=== PATIENT | female | born 1945 | race Caucasian/White ===

== ENCOUNTER 2018-06-11 16:38 | Emergency (ER) | payer MEDICARE, OTHER ==
[~2018-06-11] VITALS: Ht 149.9 cm; Wt 69.9 kg
[2018-06-11] MEDS ORDERED: NS IV 1000 ML 1,000 ML IV SCH (17:26)
[2018-06-11] MEDS ORDERED: ONDANSETRON 4 MG/2 ML (SDV) Z0FRAN IVP ONE (17:30)
[2018-06-11 17:37] LABS: CLARITY,URINE SLIGHTLY CLOUDY; GLUCOSE, URINE (UA) NEGATIVE (NEGATIVE); KETONES,URINE 3+ (NEGATIVE); LEUKOCYTE ESTERASE ,URINE 1+ (NEGATIVE); NITRITE,URINE NEGATIVE (NEGATIVE); PH,URINE 5 (5-9); PROTEIN,URINE 2+ (NEGATIVE); UROBILINOGEN,URINE 4 MG/DL (NORMAL)
[2018-06-11 17:46] LABS: BASOPHILS # (AUTO) 0.1 10^3/uL (0.0-0.1); BASOPHILS % (AUTO) 0 % (0-10); EOSINOPHILS % (AUTO) 0 % (0-10); HEMATOCRIT 38 % (35-52); LYMPHOCYTES # (AUTO) 1.8 X 10^3 (1.0-4.0); LYMPHOCYTES % (AUTO) 4 % (12-44); MEAN CORPUSCULAR HEMOGLOBIN 24 PG (25-34); MEAN CORPUSCULAR HGB CONC 32 G/DL (32-36); MEAN CORPUSCULAR VOLUME 77 FL (80-99); MEAN PLATELET VOLUME 9.7 FL (7.4-10.4); MONOCYTES # (AUTO) 1.9 X 10^3 (0.0-1.0); MONOCYTES % (AUTO) 4 % (0-12); NEUTROPHILS # (AUTO) 40.3 X 10^3 (1.8-7.8); NEUTROPHILS % (AUTO) 91 % (42-75); PLATELET COUNT 337 10^3/uL (130-400)
[2018-06-11 17:47] LABS: WHITE BLOOD COUNT 44.1 10^3/uL (4.3-11.0)
[2018-06-11 17:48] LABS: BILIRUBIN,URINE 1+ (NEGATIVE)
[2018-06-11 17:51] LABS: BACTERIA,URINE LARGE /HPF; COLOR,URINE YELLOW; SQUAMOUS EPITHELIAL CELL,UR >50 /HPF; WBC,URINE 0-2 /HPF
[2018-06-11 18:06] LABS: NEUTROPHILS % (MANUAL) 87 %
[2018-06-11 18:07] LABS: ALBUMIN 3.9 GM/DL (3.2-4.5); BAND NEUTROPHILS 8 %; BASOPHILS % (MANUAL) 0 %; BILIRUBIN,TOTAL 0.8 MG/DL (0.1-1.0); CALCIUM 9.7 MG/DL (8.5-10.1); CREATININE SERUM 0.92 MG/DL (0.60-1.30); EOSINOPHILS % (MANUAL) 0 %; HYPOCHROMASIA SLIGHT; LYMPHOCYTES % (MANUAL) 2 %; MICROCYTOSIS SLIGHT; MONOCYTES % (MANUAL) 3 %; POTASSIUM 3.4 MMOL/L (3.6-5.0); TOTAL PROTEIN 7.5 GM/DL (6.4-8.2)
[2018-06-11] MEDS ORDERED: D5 1/2 NS W/KCL 20 MEQ/L 0 ML IV ONE (18:39)
[2018-06-11] MEDS ORDERED: 1/2 NS W/KCL 20 MEQ/L 1,000 ML IV SCH (18:45)
--- NOTE | 2018-06-11 19:00 | ED Abdominal Pain ---
General Chief Complaint: Abdominal/GI Problems Stated Complaint[facility] T[facility]: DIARRHEA X2 HAS BEEN HOSPITALIZED WITH C-DIFF AND HAS HAD IT TWICE SINCE. CONTINUES TO HAVE DIARRHEA DISPITE MEDICATIONS. LIVES IN AND WAS TOLD TO COME HERE BY HER PCP DUE TO CONSTANT DIARRHEA AND DEHYDRATION. Sepsis Screen: No Definite Risk History of Present Illness Date Seen by Provider: Jun 11, 2018 Time Seen by Provider: 16:50 Initial Comments 72-year-old female presents for diarrhea for the last 24-48 hours, abdominal pain and significant medical history over the last 6 months. She is followed by Dr. Swanson in [place]. In February 2018 she was treated for ACS with a CABG, and then developed a UTI and was treated with Levaquin, which led to C. difficile in April 2018 and May 2018, all of this was performed at [facility]. She attempted to go back to [facility] today but due to the weather travel was not advised. Timing/Duration: 1-2 Days Severity/Quality: Moderate Location: Generalized Abdomen Radiation: No Radiation Associated Symptoms: Denies Symptoms, Nausea/Vomiting (only nausea) Allergies and Home Medications Allergies Coded Allergies: Penicillins (Unverified Allergy, Mild, RASH, 06/11/18) Sulfa (Sulfonamide Antibiotics) (Unverified Allergy, Mild, RASH, 06/11/18) tramadol (Unverified Adverse Reaction, Mild, HEADACHES, 06/11/18) Patient Home Medication List Home Medication List Reviewed: Yes Review of Systems Review of Systems Constitutional: no symptoms reported, see HPI Gastrointestinal: See HPI, Abdominal Pain, Diarrhea (5-7 episodes in the last 12 hours), Nausea, Poor Appetite All Other Systems Reviewed Negative Unless Noted: Yes Past Bbobmyw-Qwsbbw-Jxjhml Hx Past Med/Social Hx: Reviewed Nursing Past Med/Soc Hx Patient Social History Alcohol Use: Denies Use Recreational Drug Use: No Smoking Status: Never a Smoker Recent Foreign Travel: No Contact w/Someone Who Travel: No Recent Infectious Disease Expo: No Recent Hopitalizations: Yes (CABG Jan) Physical Abuse: No Sexual Abuse: No Seasonal Allergies Seasonal Allergies: No Past Medical History Surgeries: Yes Adenoidectomy, CABG, Hysterectomy, Open Heart Surgery, Tonsillectomy Respiratory: No Cardiac: Yes Coronary Artery Disease, Hypertension Neurological: No Genitourinary: No Gastrointestinal: Yes C-Diff Musculoskeletal: No Endocrine: No HEENT: No Cancer: No Psychosocial: Yes Anxiety Integumentary: No Blood Disorders: No Physical Exam Vital Signs Vital Signs - First Documented 06/11/18 16:44 Temp 98.4 Pulse 72 Resp 16 B/P (MAP) 147/64 (91) Pulse Ox 97 O2 Delivery Room Air Capillary Refill : Less Than 3 Seconds Height/Weight/BMI Height: 4'11.00" Weight: 154lbs. oz. 69.880387ch; BMI Method:Stated General Appearance: WD/WN, no apparent distress HEENT: PERRL/EOMI, TMs normal, pharynx normal, other (oral mucosa pink but extremely dry) Neck: non-tender, full range of motion, supple, normal inspection Respiratory: chest non-tender, lungs clear, normal breath sounds Cardiovascular: normal peripheral pulses, regular rate, rhythm, no edema, systolic murmur Gastrointestinal: normal bowel sounds, soft; No guarding, No rebound; tenderness (generalized. Negative Tillman); No hernia, No mass, No hepatomegaly Extremities: normal range of motion, non-tender, normal inspection, no pedal edema, no calf tenderness, normal capillary refill Neurologic/Psychiatric: no motor/sensory deficits, alert, normal mood/affect, oriented x 3 Skin: normal color, warm/dry Lymphatic: no adenopathy Focused Exam Sepsis Stage: Ruled Out Reason for ruling out sepsis: Normal Lactic acid, pulse 70s and B/P 140s/70s. Lactate Level 06/11/18 18:15: Lactic Acid Level 1.02 Lactic Acid Level Laboratory Tests Test 06/11/18 18:15 Lactic Acid Level 1.02 MMOL/L (0.50-2.00) Progress/Results/Core Measures Results/Orders Lab Results Laboratory Tests Test 06/11/18 17:28 06/11/18 17:37 06/11/18 18:15 Range/Units Urine Color YELLOW Urine Clarity SLIGHTLY CLOUDY Urine pH 5 5-9 Urine Specific [place] 1.020 1.016-1.022 Urine Protein 2+ H NEGATIVE Urine Glucose (UA) NEGATIVE NEGATIVE Urine Ketones 3+ H NEGATIVE Urine Nitrite NEGATIVE NEGATIVE Urine Bilirubin 1+ H NEGATIVE Urine Urobilinogen 4 H NORMAL MG/DL Urine Leukocyte Esterase 1+ H NEGATIVE Urine RBC (Auto) 3+ H NEGATIVE Urine RBC 2-5 H /HPF Urine WBC 0-2 /HPF Urine Squamous Epithelial Cells >50 H /HPF Urine Crystals NONE /LPF Urine Bacteria LARGE H /HPF Urine Casts NONE /LPF Urine Mucus MODERATE H /LPF Urine Culture Indicated YES White Blood Count 44.1 *H 4.3-11.0 10^3/uL Red Blood Count 4.91 4.35-5.85 10^6/uL Hemoglobin 12.0 11.5-16.0 G/DL Hematocrit 38 35-52 % Mean Corpuscular Volume 77 L 80-99 FL Mean Corpuscular Hemoglobin 24 L 25-34 PG Mean Corpuscular Hemoglobin Concent 32 32-36 G/DL Red Cell Distribution Width 16.0 H 10.0-14.5 % Platelet Count 337 130-400 10^3/uL Mean Platelet Volume 9.7 7.4-10.4 FL Neutrophils (%) (Auto) 91 H 42-75 % Lymphocytes (%) (Auto) 4 L 12-44 % Monocytes (%) (Auto) 4 0-12 % Eosinophils (%) (Auto) 0 0-10 % Basophils (%) (Auto) 0 0-10 % Neutrophils # (Auto) 40.3 H 1.8-7.8 X 10^3 Lymphocytes # (Auto) 1.8 1.0-4.0 X 10^3 Monocytes # (Auto) 1.9 H 0.0-1.0 X 10^3 Eosinophils # (Auto) 0.0 0.0-0.3 10^3/uL Basophils # (Auto) 0.1 0.0-0.1 10^3/uL Neutrophils % (Manual) 87 % Lymphocytes % (Manual) 2 % Monocytes % (Manual) 3 % Eosinophils % (Manual) 0 % Basophils % (Manual) 0 % Band Neutrophils 8 % Hypochromasia SLIGHT Microcytosis SLIGHT Sodium Level 139 135-145 MMOL/L Potassium Level 3.4 L 3.6-5.0 MMOL/L Chloride Level 101 98-107 MMOL/L Carbon Dioxide Level 23 21-32 MMOL/L Anion Gap 15 H 5-14 MMOL/L Blood Urea Nitrogen 15 7-18 MG/DL Creatinine 0.92 0.60-1.30 MG/DL Estimat Glomerular Filtration Rate 60 BUN/Creatinine Ratio 16 Glucose Level 106 H 70-105 MG/DL Calcium Level 9.7 8.5-10.1 MG/DL Corrected Calcium 9.8 8.5-10.1 MG/DL Total Bilirubin 0.8 0.1-1.0 MG/DL Aspartate Amino Transf (AST/SGOT) 20 5-34 U/L Alanine Aminotransferase (ALT/SGPT) 13 0-55 U/L Alkaline Phosphatase 80 40-136 U/L Total Protein 7.5 6.4-8.2 GM/DL Albumin 3.9 3.2-4.5 GM/DL Amylase Level 8 L 25-125 U/L Lipase 5 L 8-78 U/L Lactic Acid Level 1.02 0.50-2.00 MMOL/L Micro Results Microbiology 06/11/18 C. difficile GDH Antigen & Toxins - Final, Complete My Orders Orders - TYRON FLORES C Difficile Ag + Toxin A/B. (06/11/18 17:07) Stool Culture (06/11/18 17:08) Ua Culture If Indicated (06/11/18 17:08) Amylase (06/11/18 17:26) Cbc With Automated Diff (06/11/18 17:26) Comprehensive Metabolic Panel (06/11/18 17:26) Lipase (06/11/18 17:26) Saline Lock/Iv-Start (06/11/18 17:26) Ns Iv 1000 Ml (Sodium Chloride 0.9%) (06/11/18 17:26) Ondansetron Injection (Zofran Injectio (06/11/18 17:30) Manual Differential (06/11/18 17:37) Blood Culture (06/11/18 17:49) Lactic Acid Analyzer (06/11/18 17:49) Urine Culture (06/11/18 17:28) Ct Abdomen/Pelvis Wo (06/11/18 17:52) Blood Culture (06/11/18 18:15) 1/2 Ns W/Kcl 20 Meq/L (0.45% Sodium Chlo (06/11/18 18:45) D5 1/2 Ns W/Kcl 20 Meq/L (Dextrose 5%/0. (06/11/18 18:39) Metronidazole 500mg/100ml Ivpb (Flagyl 5 (06/11/18 19:15) Vancomycin Oral Suspension (Vancomycin O (06/11/18 20:17) Acetaminophen Tablet/Caplet (Tylenol T (06/11/18 20:19) Atenolol Tablet (Tenormin Tablet) (06/11/18 20:19) Avery Syrup (Avery Syrup) 5 Ml, Vancom (06/11/18 20:30) Medications Given in ED Current Medications Medications Dose Ordered Sig/Celeste Route Start Time Stop Time Status Last Admin Dose Admin Avery Syrup/ Vancomycin HCl 500 MG = 10 ML ONCE ONCE PO 06/11/18 20:30 06/11/18 20:31 DC 06/11/18 20:44 5 ML Metronidazole 100 ml @ 100 mls/hr ONCE ONCE IV 06/11/18 19:15 06/11/18 20:14 DC 06/11/18 19:12 100 MLS/HR Ondansetron HCl 4 mg ONCE ONCE IVP 06/11/18 17:30 06/11/18 17:31 DC 06/11/18 17:54 4 MG Vital Signs/I&O 06/11/18 06/11/18 16:44 21:07 Temp 98.4 98.4 Pulse 72 72 Resp 16 16 B/P (MAP) 147/64 (91) 130/61 (84) Pulse Ox 97 97 O2 Delivery Room Air Blood Pressure Mean: 91 Progress Progress Note : Time: 16:50 Progress Note Pt seen and evaluated. Will obtain labs, stool C&S, C-diff, IV NS 1L, Zofran 4 mg IV. Will monitor. Attempting to obtain records from [facility]. 1730 WBC 44,000. Will obtain Blood cultures and lactic acid. Positive for antigen and toxin of A/B C. difficile. Will start Flagyl 500 mg IV. Spoke to [facility] and [facility], neither can transport patient to [facility], due to weather. 1800 potassium 3.4, will start half normal saline with 20 mEq of potassium after the Flagyl has infused. Patient continues to be hemodynamically stable. She is alert and oriented. We'll obtain CT of the abdomen and pelvis. 0 discussed with patient the results of her CT, which show diverticulitis and colitis of the sigmoid and descending colon, cholelithiasis and no abdominal abscess or free fluid. At the present time there are no hospital beds available here on our medical or ICU floor. She wishes to be transferred to [facility] in [place] if feasible. Will begin transfer plans. 1999 Dr. Davidson at [facility], agreed to accept patient for transfer. Continue present tx and add Vancomycin PO. 2014 [facility] has assigned patient to Room 6003. Notified [facility] for transfer. Patient and her son notified. She is complaining of a mild headache will give Tylenol 650 mg orally. 2044 patient reports headache has improved. [facility] here for transfer. Patient continues to be stable, alert and oriented. No new complaints. Diagnostic Imaging Diagonstic Imaging: CT Plain Films/CT/US/NM/MRI: abdomen, pelvis Comments NAME: ZELDA TILLEY [facility] REC#: [id number] PT STATUS: REG ER : 1945 PHYSICIAN: TYRON FLORES ADMIT DATE: 06/11/18/ER Draft Date of Exam:06/11/18 CT ABDOMEN/PELVIS WO PROCEDURE: CT abdomen and pelvis without contrast. TECHNIQUE: Multiple contiguous axial images were obtained through the abdomen and pelvis without the use of intravenous contrast. INDICATION: Left lower quadrant pain, diarrhea. There are no prior studies available for comparison. FINDINGS: There is diverticulosis of the sigmoid and descending colon. The wall of the descending and sigmoid colon does seem somewhat thickened. Furthermore, there is distortion of the mesenteric fat near the proximal descending colon. This does suggest edema/inflammation and may well be secondary to acute diverticulitis/colitis. There is also slight distortion of the pericolonic fat of the junction of the sigmoid and descending colon and of the sigmoid colon itself. I suspect that there is an element of colitis/diverticulitis in this area as well. There is no diverticular mass or abscess identified. There is no sign of a microperforation. There is no pelvic mass or free fluid collection noted. The appendix was not well-visualized but there are no indirect signs of acute appendicitis. The urinary bladder is grossly unremarkable. The uterus appears to be surgically absent. The gallbladder is distended and there are several gallstones within the gallbladder. There is no sign of acute cholecystitis, but further imaging is desired, then ultrasound would be recommended. The liver, spleen, pancreas, adrenals, kidneys, aorta and inferior vena cava show no sign of an acute abnormality. The stomach is not well-distended and consequently difficult to assess. There are surgical clips about the gastroesophageal junction and there does appear to be a 4.0 x 4.2 CM hiatal hernia. The lung bases are generally clear. The heart is enlarged. The bone window show no evidence for fracture or for destructive lesion. There is a grade 1 spondylolisthesis of L5 with respect to S1 with narrowing of the disc space at this level. IMPRESSION: 1. The findings do suggest acute diverticulitis/colitis of the sigmoid and descending colon. There is no diverticular mass or abscess identified. There is cholelithiasis and the gallbladder is distended, but there is no sign of acute cholecystitis. If further evaluation is desired, then ultrasound would be recommended. 2. There is no acute abnormality of the abdomen or pelvis noted otherwise. 3. There is evidence of prior gastric surgery and there is a roughly 4 x 4 CM hiatal hernia. 4. There is cardiomegaly and coronary artery disease. 5. There is a grade 1 spondylolisthesis of L5 with respect to S1 and bilateral pars defects. Dictated on workstation # [id number] Dict: 06/11/181904 Trans: 06/11/181917 [id number] Interpreted by: NATALIE FERGUSON MD Electronically signed by: Reviewed: Reviewed by Me Departure Impression Primary Impression: Clostridium difficile diarrhea Additional Impressions: UTI (urinary tract infection) Qualified Codes: N30.01 - Acute cystitis with hematuria Diverticulitis large intestine Qualified Codes: K57.32 - Diverticulitis of large intestine without perforation or abscess without bleeding Disposition: XFER SHT-TRM HOSP Condition: Improved Transfer Time Spoke to Accepting Phy: 20:00 Transfer Progress Notes [facility] agreed to accept patient for admission to room 6003. Transfer Time: 20:45 Transfer Facility: [facility] Method of Transfer: EMS Departure-Patient Inst. Decision time for Depature: 20:00 Referrals: PINA SWANSON MD (PCP/Family) Primary Care Physician TYRON FLORES Jun 11, 2018 19:00
[2018-06-11] MEDS ORDERED: metroNIDAZOLE 500MG/100ML IVPB 100 ML IV ONE (19:15)
--- NOTE | 2018-06-11 19:19 | Diagnostic Imaging Report ---
PROCEDURE: CT abdomen and pelvis without contrast. TECHNIQUE: Multiple contiguous axial images were obtained through the abdomen and pelvis without the use of intravenous contrast. INDICATION: Left lower quadrant pain, diarrhea. There are no prior studies available for comparison. FINDINGS: There is diverticulosis of the sigmoid and descending colon. The wall of the descending and sigmoid colon does seem somewhat thickened. Furthermore, there is distortion of the mesenteric fat near the proximal descending colon. This does suggest edema/inflammation and may well be secondary to acute diverticulitis/colitis. There is also slight distortion of the pericolonic fat of the junction of the sigmoid and descending colon and of the sigmoid colon itself. I suspect that there is an element of colitis/diverticulitis in this area as well. There is no diverticular mass or abscess identified. There is no sign of a microperforation. There is no pelvic mass or free fluid collection noted. The appendix was not well-visualized but there are no indirect signs of acute appendicitis. The urinary bladder is grossly unremarkable. The uterus appears to be surgically absent. The gallbladder is distended and there are several gallstones within the gallbladder. There is no sign of acute cholecystitis, but further imaging is desired, then ultrasound would be recommended. The liver, spleen, pancreas, adrenals, kidneys, aorta and inferior vena cava show no sign of an acute abnormality. The stomach is not well-distended and consequently difficult to assess. There are surgical clips about the gastroesophageal junction and there does appear to be a 4.0 x 4.2 CM hiatal hernia. The lung bases are generally clear. The heart is enlarged. The bone window show no evidence for fracture or for destructive lesion. There is a grade 1 spondylolisthesis of L5 with respect to S1 with narrowing of the disc space at this level. Bilateral pars defect are also noted at L5. IMPRESSION: 1. The findings do suggest acute diverticulitis/colitis of the sigmoid and descending colon. There is no diverticular mass or abscess identified. There is cholelithiasis and the gallbladder is distended, but there is no sign of acute cholecystitis. If further evaluation is desired, then ultrasound would be recommended. 2. There is no acute abnormality of the abdomen or pelvis noted otherwise. 3. There is evidence of prior gastric surgery and there is a roughly 4 x 4 CM hiatal hernia. 4. There is cardiomegaly and coronary artery disease. 5. There is a grade 1 spondylolisthesis of L5 with respect to S1 and bilateral pars defects. Dictated by: Dictated on workstation # [id number]
--- NOTE | 2018-06-11 20:10 | NUR ---
cr. [facility] shift capt. called informed of transfer to [facility].
[2018-06-11] MEDS ORDERED: VANCOMYCIN INJECTION 1,000 MG in NS (IVPB) 250 ML IV ONE (20:15)
--- NOTE | 2018-06-11 20:15 | NUR ---
dispatch called notified of transfer to [facility] rm [id number]
[2018-06-11] MEDS ORDERED: VANCOMYCIN ORAL SUSPENSION 60 ML BOTTLE PO STA (20:17)
[2018-06-11] MEDS ORDERED: ACETAMINOPHEN 325 MG TABLET PO STA (20:19)
[2018-06-11] MEDS ORDERED: ATENOLOL 25 MG (TENORMIN) TAB PO STA (20:19)
[2018-06-11] MEDS ORDERED: VANCOMYCIN 250 MG/5 ML PO ONE ×2 (20:30)
[2018-06-11 21:07] VITALS: BP 130/61
== END 2018-06-11 21:07 | disposition short-term general hospital (02) ==
LOC: ER 16:40
DX: A04.72 Enterocolitis due to Clostridium difficile, not specified as recurrent (principal); N39.0 Urinary tract infection, site not specified; K57.32 Diverticulitis of large intestine without perforation or abscess without bleeding; I25.10 Atherosclerotic heart disease of native coronary artery without angina pectoris; I10 Essential (primary) hypertension; F41.9 Anxiety disorder, unspecified; Z88.0 Allergy status to penicillin; Z88.2 Allergy status to sulfonamides; Z88.6 Allergy status to analgesic agent; Z95.1 Presence of aortocoronary bypass graft; Z86.19 Personal history of other infectious and parasitic diseases; Z90.89 Acquired absence of other organs; Z90.710 Acquired absence of both cervix and uterus
CPT/HCPCS: 36415; 74176; 80053; 81000; 82150; 83605; 83690; 85007; 85027; 87015; 87040; 87045; 87046; 87088; 87324; 87449; 87899

== ENCOUNTER 2018-11-18 13:11 | Emergency (ER) | payer MEDICARE ==
[~2018-11-18] VITALS: Ht 149.9 cm; Wt 65.3 kg
--- NOTE | 2018-11-18 13:30 | ED General ---
General Stated Complaint: DIZZY,NAUSEA History of Present Illness Date Seen by Provider: Nov 18, 2018 Time Seen by Provider: 13:20 Initial Comments 72-year-old female presents with some "dizziness" with some nausea. Patient cannot really describe to me what she means by dizzy which is more describes a malaise. She reports that the room is not spinning her she is not standing she does not feel off balance. She had some mild nausea with it. While I was obtaining a history of present illness and my physical exam she initially denied any abdominal pain but then had pain in the right lower quadrant upon palpitation. She denies any urinary symptoms. Patient also has diffuse small ulceration-type sores all over her body. She reports that she's had them for years. However they have increased recently. She reports she's been told she had "scabies, bedbugs, strep and multiple other etiologies for the sores. Allergies and Home Medications Allergies Coded Allergies: Penicillins (Unverified Allergy, Mild, RASH, 06/11/18) Sulfa (Sulfonamide Antibiotics) (Unverified Allergy, Mild, RASH, 06/11/18) tramadol (Unverified Adverse Reaction, Mild, HEADACHES, 06/11/18) Patient Home Medication List Home Medication List Reviewed: Yes Review of Systems Review of Systems Constitutional: No chills; dizziness, malaise EENTM: no symptoms reported Respiratory: no symptoms reported Cardiovascular: no symptoms reported Gastrointestinal: RLQ, nausea Genitourinary: no symptoms reported Skin: see HPI, lesions Psychiatric/Neurological: No Symptoms Reported Past Ppdieac-Qwpfyt-Dxjnef Hx Past Med/Social Hx: Reviewed Nursing Past Med/Soc Hx Patient Social History Recent Hopitalizations: Yes (CABG Jan) Seasonal Allergies Seasonal Allergies: No Past Medical History Surgeries: Yes Adenoidectomy, CABG, Hysterectomy, Open Heart Surgery, Tonsillectomy Respiratory: No Cardiac: Yes Coronary Artery Disease, Hypertension Neurological: No Genitourinary: No Gastrointestinal: Yes C-Diff Musculoskeletal: No Endocrine: No HEENT: No Cancer: No Psychosocial: Yes Anxiety Integumentary: No Blood Disorders: No Physical Exam Vital Signs Vital Signs - First Documented 11/18/18 13:18 Temp 98.2 Pulse 64 Resp 14 B/P (MAP) 159/65 (96) Pulse Ox 99 O2 Delivery Room Air Capillary Refill : Height, Weight, BMI Height: 4'11.00" Weight: 154lbs. oz. 69.865434id; BMI Method:Stated General Appearance: No Apparent Distress, WD/WN Eyes: Bilateral Eye Normal Inspection, Bilateral Eye PERRL, Bilateral Eye EOMI HEENT: PERRL/EOMI, TMs Normal Neck: Full Range of Motion, Normal Inspection, Non Tender Respiratory: Chest Non Tender, Lungs Clear, Normal Breath Sounds Cardiovascular: Regular Rate, Rhythm, No Gallop, Other (Mild bilateral lower extremity edema) Extremity: Normal Capillary Refill Neurologic/Psychiatric: Alert Skin: Other (Diffuse papular sores with some mild ulcerations especially on her back) Progress/Results/Core Measures Suspected Sepsis SIRS Temperature: Pulse: Respiratory Rate: Laboratory Tests 11/18/18 13:27: White Blood Count 10.0 Blood Pressure / Mean: Laboratory Tests 11/18/18 13:27: Creatinine 1.25, Platelet Count 250, Total Bilirubin 0.4 Results/Orders Lab Results Laboratory Tests Test 11/18/18 13:27 11/18/18 13:45 Range/Units White Blood Count 10.0 4.3-11.0 10^3/uL Red Blood Count 4.59 4.35-5.85 10^6/uL Hemoglobin 12.4 11.5-16.0 G/DL Hematocrit 39 35-52 % Mean Corpuscular Volume 85 80-99 FL Mean Corpuscular Hemoglobin 27 25-34 PG Mean Corpuscular Hemoglobin Concent 32 32-36 G/DL Red Cell Distribution Width 17.1 H 10.0-14.5 % Platelet Count 250 130-400 10^3/uL Mean Platelet Volume 10.5 H 7.4-10.4 FL Neutrophils (%) (Auto) 67 42-75 % Lymphocytes (%) (Auto) 19 12-44 % Monocytes (%) (Auto) 9 0-12 % Eosinophils (%) (Auto) 4 0-10 % Basophils (%) (Auto) 1 0-10 % Neutrophils # (Auto) 6.7 1.8-7.8 X 10^3 Lymphocytes # (Auto) 1.8 1.0-4.0 X 10^3 Monocytes # (Auto) 0.9 0.0-1.0 X 10^3 Eosinophils # (Auto) 0.4 H 0.0-0.3 10^3/uL Basophils # (Auto) 0.1 0.0-0.1 10^3/uL Sodium Level 142 135-145 MMOL/L Potassium Level 4.1 3.6-5.0 MMOL/L Chloride Level 99 98-107 MMOL/L Carbon Dioxide Level 26 21-32 MMOL/L Anion Gap 17 H 5-14 MMOL/L Blood Urea Nitrogen 30 H 7-18 MG/DL Creatinine 1.25 0.60-1.30 MG/DL Estimat Glomerular Filtration Rate 42 BUN/Creatinine Ratio 24 Glucose Level 70 70-105 MG/DL Calcium Level 9.8 8.5-10.1 MG/DL Corrected Calcium 9.5 8.5-10.1 MG/DL Magnesium Level 2.2 1.8-2.4 MG/DL Total Bilirubin 0.4 0.1-1.0 MG/DL Aspartate Amino Transf (AST/SGOT) 34 5-34 U/L Alanine Aminotransferase (ALT/SGPT) 31 0-55 U/L Alkaline Phosphatase 67 40-136 U/L Troponin I < 0.30 <0.30 NG/ML Total Protein 7.9 6.4-8.2 GM/DL Albumin 4.4 3.2-4.5 GM/DL Lipase 35 8-78 U/L Urine Color YELLOW Urine Clarity CLEAR Urine pH 5.5 5-9 Urine Specific [place] 1.010 L 1.016-1.022 Urine Protein NEGATIVE NEGATIVE Urine Glucose (UA) NEGATIVE NEGATIVE Urine Ketones NEGATIVE NEGATIVE Urine Nitrite NEGATIVE NEGATIVE Urine Bilirubin NEGATIVE NEGATIVE Urine Urobilinogen 0.2 NORMAL MG/DL Urine Leukocyte Esterase NEGATIVE NEGATIVE Urine RBC (Auto) NEGATIVE NEGATIVE Urine RBC NONE /HPF Urine WBC RARE /HPF Urine Squamous Epithelial Cells 2-5 /HPF Urine Crystals NONE /LPF Urine Bacteria NONE /HPF Urine Casts NONE /LPF Urine Mucus NEGATIVE /LPF Urine Culture Indicated NO My Orders Orders - MONROY,EMANUEL L DO Cbc With Automated Diff (11/18/18 13:22) Comprehensive Metabolic Panel (11/18/18 13:22) Lactic Acid Analyzer (11/18/18 13:22) Lipase (11/18/18 13:22) Magnesium (11/18/18 13:22) Ua Culture If Indicated (11/18/18 13:22) Troponin I (11/18/18 13:22) Acute Abd Series (11/18/18 13:22) Ekg Tracing (11/18/18 13:22) Orthostatic Vital Signs (Adult (11/18/18 13:22) Ed Iv/Invasive Line Start (11/18/18 13:49) Vital Signs/I&O 11/18/18 11/18/18 13:18 13:44 Temp 98.2 Pulse 64 52 21 52 Resp 14 B/P (MAP) 159/65 (96) 122/60 (80) 139/56 (83) 140/55 (83) Pulse Ox 99 O2 Delivery Room Air Capillary Refill : Progress Note : Progress Note I reviewed labs x-ray and EKG with patient. I discussed with her that she has a significant amount of stool on her x-ray which is likely causing the right lower quadrant abdominal pain. Patient was offered CT and further evaluation versus DC'd home with increased fluids and MiraLAX. Patient reports that she would prefer to try just some MiraLAX and increasing her fluids. I discussed with her that the cost patient also because of some nausea which she is feeling. Patient states she has an appointment scheduled with her primary care physician to follow-up on her skin sores. Patient will be discharged and stable condition and should return to the ER as needed Departure Impression Primary Impression: Constipation Qualified Codes: K59.00 - Constipation, unspecified Additional Impression: Skin sore Disposition: 01 HOME, SELF-CARE Condition: Stable Departure-Patient Inst. Referrals: PINA SWANSON MD (PCP/Family) Primary Care Physician Patient Instructions: Constipation, Adult (DC), Dermatitis EMANUEL MONROY DO Nov 18, 2018 13:30
[2018-11-18 13:37] LABS: BASOPHILS # (AUTO) 0.1 10^3/uL (0.0-0.1); BASOPHILS % (AUTO) 1 % (0-10); EOSINOPHILS # (AUTO) 0.4 10^3/uL (0.0-0.3); EOSINOPHILS % (AUTO) 4 % (0-10); HEMATOCRIT 39 % (35-52); HEMOGLOBIN 12.4 G/DL (11.5-16.0); LYMPHOCYTES # (AUTO) 1.8 X 10^3 (1.0-4.0); LYMPHOCYTES % (AUTO) 19 % (12-44); MEAN CORPUSCULAR HEMOGLOBIN 27 PG (25-34); MEAN CORPUSCULAR HGB CONC 32 G/DL (32-36); MEAN CORPUSCULAR VOLUME 85 FL (80-99); MEAN PLATELET VOLUME 10.5 FL (7.4-10.4); MONOCYTES # (AUTO) 0.9 X 10^3 (0.0-1.0); MONOCYTES % (AUTO) 9 % (0-12); NEUTROPHILS # (AUTO) 6.7 X 10^3 (1.8-7.8); NEUTROPHILS % (AUTO) 67 % (42-75); PLATELET COUNT 250 10^3/uL (130-400); RED CELL DISTRIBUTION WIDTH 17.1 % (10.0-14.5)
[2018-11-18 13:44] VITALS: BP_SYST 122; BP_SYST 139; BP_SYST 140; BP_DIAS 55; BP_DIAS 56; BP_DIAS 60
[2018-11-18 13:54] LABS: POTASSIUM 4.1 MMOL/L (3.6-5.0); SODIUM 142 MMOL/L (135-145)
[2018-11-18 13:55] LABS: ALANINE AMINOTRANSFERASE 31 U/L (0-55); ALBUMIN 4.4 GM/DL (3.2-4.5); ALKALINE PHOSPHATASE 67 U/L (40-136); BILIRUBIN,TOTAL 0.4 MG/DL (0.1-1.0); BUN/CREATININE RATIO 24; CALCIUM 9.8 MG/DL (8.5-10.1); CARBON DIOXIDE 26 MMOL/L (21-32); CHLORIDE 99 MMOL/L (98-107); CREATININE SERUM 1.25 MG/DL (0.60-1.30); GFR ESTIMATED 42; GLUCOSE 70 MG/DL (70-105); LIPASE 35 U/L (8-78); MAGNESIUM 2.2 MG/DL (1.8-2.4); TOTAL PROTEIN 7.9 GM/DL (6.4-8.2)
[2018-11-18 14:05] LABS: BILIRUBIN,URINE NEGATIVE (NEGATIVE); CLARITY,URINE CLEAR; COLOR,URINE YELLOW; GLUCOSE, URINE (UA) NEGATIVE (NEGATIVE); KETONES,URINE NEGATIVE (NEGATIVE); LEUKOCYTE ESTERASE ,URINE NEGATIVE (NEGATIVE); NITRITE,URINE NEGATIVE (NEGATIVE); PH,URINE 5.5 (5-9); PROTEIN,URINE NEGATIVE (NEGATIVE); UROBILINOGEN,URINE 0.2 MG/DL (NORMAL)
[2018-11-18 14:06] LABS: WBC,URINE RARE /HPF
--- NOTE | 2018-11-18 14:28 | Diagnostic Imaging Report ---
INDICATION: Nausea and dizziness. FINDINGS: The heart is enlarged. There is some air trapping and COPD. Colonic fecal load is mildly elevated. Constipation suggested but no small bowel dilatation or overt evidence for josefina obstruction. There is a retrocardiac hiatal hernia. IMPRESSION: COPD and cardiomegaly. Constipation without overt obstruction. Dictated by: Dictated on workstation # [id number]
[2018-11-18 14:53] VITALS: BP 153/62
--- OUTSIDE RECORDS SUMMARY | 2018-11-18 15:58 | XMS REPORT | Continuity of Care Document ---
Author Organization Unknown Address Unknown Allergies There is no data. Medications There is no data. Problems There is no data. Procedures There is no data. Results There is no data. Encounters ACCT No. Visit Date/Time Discharge Status Pt. Type Provider Facility Loc./Unit Complaint [id number] 09/20/2018 11:30:00 09/20/2018 23:59:59 CLS Outpatient [facility]
== END 2018-11-18 14:53 | disposition home or self-care (01) ==
LOC: EDUNIT# 13:11 → ER FS 13:13
DX: K59.00 Constipation, unspecified (principal); L98.9 Disorder of the skin and subcutaneous tissue, unspecified; I10 Essential (primary) hypertension; I25.10 Atherosclerotic heart disease of native coronary artery without angina pectoris; F41.9 Anxiety disorder, unspecified; Z88.0 Allergy status to penicillin; Z88.2 Allergy status to sulfonamides; Z88.5 Allergy status to narcotic agent; Z95.1 Presence of aortocoronary bypass graft; Z90.710 Acquired absence of both cervix and uterus; Z90.89 Acquired absence of other organs
CPT/HCPCS: 36415; 74022; 80053; 81000; 83690; 83735; 84484; 85025; 93005

== ENCOUNTER 2019-01-08 13:26 | Emergency (ER) | payer MEDICARE ==
[~2019-01-08] VITALS: Ht 149.9 cm; Wt 67.1 kg
--- NOTE | 2019-01-08 14:19 | Diagnostic Imaging Report ---
INDICATION: Chest pain and shortness of breath. PA and lateral chest obtained at 01:48 p.m. There is post sternotomy change with cardiomegaly. Aorta is tortuous. The lungs are clear. There is no pneumothorax or pleural fluid. IMPRESSION: Cardiomegaly with post sternotomy change. No acute infiltrate or pleural fluid. Dictated by: Dictated on workstation # [id number]
[2019-01-08 14:27] LABS: INR 0.9 (0.8-1.4); PROTHROMBIN TIME PATIENT 12.4 SEC (12.2-14.7)
--- NOTE | 2019-01-08 14:27 | ED Cardiac General ---
History of Present Illness General Chief Complaint: Cardiac/General Problems Stated Complaint: SOB, CHEST PAINS Nursing Triage Note: Patient c/o chest tightness and increased shortness of breath with exertion. States that the chest tightness has been happening for the past week. She states that it is often worse at night and reports and episode where she checked her BP and it was elevated and her heart rate was irregular. Source: patient History of Present Illness Date Seen by Provider: Jan 08, 2019 Time Seen by Provider: 14:25 Initial Comments 73 yo F presents with complaints of shortness of breath with exertion and chest tightness. She does have a history of having a prior CABG in February of last year. She has not seen her sour bleaching pleater in [place] since July of this year. She has had diagnosis of heart failure as well as coronary artery disease. She is on a beta benjie which does cause her to have bradycardia. She has noticed over the last 10-14 days that she has been getting more short of breath especially with exertion going upstairs. When she lays down she has been getting short of breath as well. She has a tightness in her chest. She has noticed that her blood pressure is been high at times as well as feeling like her heart was irregular. She had gone to the clinic today to be evaluated and they sent her to the emergency department. She denies having any chest pain or tightness currently. She is interested in getting established with a local sour bleaching pleater rather than following up with [place] because she feels like it's too far to drive. Allergies and Home Medications Allergies Coded Allergies: Penicillins (Unverified Allergy, Mild, RASH, 06/11/18) Sulfa (Sulfonamide Antibiotics) (Unverified Allergy, Mild, RASH, 06/11/18) tramadol (Unverified Adverse Reaction, Mild, HEADACHES, 06/11/18) Home Medications Furosemide 40 Mg Tablet, 80 MG PO DAILY Prescribed by: KELSY VALDOVINOS on 01/08/19 1631 Patient Home Medication List Home Medication List Reviewed: Yes Review of Systems Review of Systems Constitutional: malaise EENTM: No Symptoms Reported Respiratory: Orthopnea, SOA With Exertion Cardiovascular: Chest Pain (tightness), Edema (especially when her legs are down), Irregular Heart Rate (sometimes) Gastrointestinal: No Symptoms Reported Genitourinary: Other (decreased urination unless she takes her Lasix) Musculoskeletal: no symptoms reported Skin: no symptoms reported Psychiatric/Neurological: No Symptoms Reported Past Gvniybz-Jztmbk-Mecohm Hx Past Med/Social Hx: Reviewed Nursing Past Med/Soc Hx Patient Social History 2nd Hand Smoke Exposure: No Recent Foreign Travel: No Contact w/Someone Who Travel: No Recent Infectious Disease Expo: No Recent Hopitalizations: Yes (CABG Jan) Physical Abuse: No Sexual Abuse: No Mistreated: No Fear: No Immunizations Up To Date Date of Pneumonia Vaccine: Feb 10, 2018 Date of Influenza Vaccine: Jan 11, 2018 Seasonal Allergies Seasonal Allergies: No Past Medical History Surgeries: Yes (Fecal Transplant, Inguinal Hernia Repair, EGD) Adenoidectomy, Bowel Surgery, CABG, Hysterectomy, Open Heart Surgery, Tonsillectomy Respiratory: No Cardiac: Yes (Venous Stasis Bilat lower extremities) Coronary Artery Disease, Heart Attack, Heart Murmur, Hypertension Neurological: No [employer] ATT[employer]NEY History: Hysterectomy Genitourinary: No Gastrointestinal: Yes Gastroesophageal Reflux, Gastrointestinal Bleed, Diverticulosis, C-Diff, Hiatal Hernia Musculoskeletal: Yes (Osteoarthritis, Medial meniscus tear left knee) Endocrine: No HEENT: No Cancer: No Psychosocial: Yes Anxiety, Depression Integumentary: Yes (Compulsive Skin Picking) Blood Disorders: No Physical Exam Vital Signs Vital Signs - First Documented 01/08/19 13:28 Temp 97.9 Pulse 48 Resp 11 B/P (MAP) 149/63 (91) Pulse Ox 99 O2 Delivery Room Air Capillary Refill : Less Than 3 Seconds Height, Weight, BMI Height: 4'11.00" Weight: 148lbs. oz. 67.523132nz; BMI Method:Stated General Appearance: No Apparent Distress, WD/WN HEENT: PERRL/EOMI, Pharynx Normal Neck: Full Range of Motion, Non Tender, Supple; No Carotid Bruit Respiratory: Chest Non Tender, Lungs Clear, Normal Breath Sounds, No Accessory Muscle Use, No Respiratory Distress Cardiovascular: Normal Peripheral Pulses, Bradycardia Gastrointestinal: Normal Bowel Sounds, Non Tender, Soft Extremity: Normal Capillary Refill, Normal Range of Motion, Non Tender, No Calf Tenderness, Pedal Edema (one plus nonpitting pedal edema bilaterally) Neurologic/Psychiatric: Alert, Oriented x3, No Motor/Sensory Deficits Skin: Normal Color, Warm/Dry Progress/Results/Core Measures Results/Orders Lab Results Laboratory Tests Test 01/08/19 13:45 Range/Units White Blood Count 8.9 4.3-11.0 10^3/uL Red Blood Count 4.04 L 4.35-5.85 10^6/uL Hemoglobin 11.5 11.5-16.0 G/DL Hematocrit 36 35-52 % Mean Corpuscular Volume 89 80-99 FL Mean Corpuscular Hemoglobin 28 25-34 PG Mean Corpuscular Hemoglobin Concent 32 32-36 G/DL Red Cell Distribution Width 14.8 H 10.0-14.5 % Platelet Count 223 130-400 10^3/uL Mean Platelet Volume 10.6 H 7.4-10.4 FL Neutrophils (%) (Auto) 65 42-75 % Lymphocytes (%) (Auto) 21 12-44 % Monocytes (%) (Auto) 11 0-12 % Eosinophils (%) (Auto) 2 0-10 % Basophils (%) (Auto) 1 0-10 % Neutrophils # (Auto) 5.8 1.8-7.8 X 10^3 Lymphocytes # (Auto) 1.9 1.0-4.0 X 10^3 Monocytes # (Auto) 0.9 0.0-1.0 X 10^3 Eosinophils # (Auto) 0.2 0.0-0.3 10^3/uL Basophils # (Auto) 0.1 0.0-0.1 10^3/uL Prothrombin Time 12.4 12.2-14.7 SEC INR Comment 0.9 0.8-1.4 Activated Partial Thromboplast Time 28 24-35 SEC Sodium Level 139 135-145 MMOL/L Potassium Level 4.8 3.6-5.0 MMOL/L Chloride Level 101 98-107 MMOL/L Carbon Dioxide Level 25 21-32 MMOL/L Anion Gap 13 5-14 MMOL/L Blood Urea Nitrogen 27 H 7-18 MG/DL Creatinine 1.09 0.60-1.30 MG/DL Estimat Glomerular Filtration Rate 49 BUN/Creatinine Ratio 25 Glucose Level 89 70-105 MG/DL Calcium Level 9.4 8.5-10.1 MG/DL Corrected Calcium 9.3 8.5-10.1 MG/DL Magnesium Level 2.1 1.6-2.4 MG/DL Total Bilirubin 0.2 0.1-1.0 MG/DL Aspartate Amino Transf (AST/SGOT) 26 5-34 U/L Alanine Aminotransferase (ALT/SGPT) 13 0-55 U/L Alkaline Phosphatase 52 40-136 U/L Troponin I < 0.30 <0.30 NG/ML Pro-B-Type Natriuretic Peptide 2540.0 H <75.0 PG/ML Total Protein 7.1 6.4-8.2 GM/DL Albumin 4.1 3.2-4.5 GM/DL My Orders Orders - KELSY VALDOVINOS MD Cbc With Automated Diff (01/08/19 13:51) Magnesium (01/08/19 13:51) Ekg Tracing (01/08/19 13:51) Comprehensive Metabolic Panel (01/08/19 13:51) Protime With Inr (01/08/19 13:51) Partial Thromboplastin Time (01/08/19 13:51) O2 (01/08/19 13:51) Monitor-Rhythm Ecg Trace Only (01/08/19 13:51) Ed Iv/Invasive Line Start (01/08/19 13:51) Troponin I (01/08/19 13:51) Probnp Fs (01/08/19 13:51) Chest Pa/Lat (2 View) (01/08/19 13:51) Vital Signs/I&O 01/08/19 01/08/19 13:28 16:50 Temp 97.9 97.4 Pulse 48 53 Resp 11 15 B/P (MAP) 149/63 (91) 163/66 (98) Pulse Ox 99 99 O2 Delivery Room Air Blood Pressure Mean: 91 Progress Progress Note #1: Progress Note Obtain labs, EKG, chest x-ray and BNP. The EKG did not show any acute ST elevation or ischemic changes. She is bradycardic. This appears similar to an EKG from November. Progress Note #2: Progress Note Her BNP is elevated to 2540. Her other labs appear stable. She has had creatinine of 1.09. Her troponin is 0. Her potassium is good at 4.8. Her chest x-ray does not show any signs of failure. Discussed with Dr. Mahoney and he felt that with her being stable she could follow-up through the clinic. We can have her increase her furosemide 80 mg for 3 days and have her recheck her labs on Saturday. Call the clinic so she can get established with him. Return sooner if she has worsening problems. Initial ECG Impression Date: Jan 08, 2019 Initial ECG Impression Time: 13:34 Initial ECG Rate: 50 Initial ECG Rhythm: S.Vargas Comment Sinus bradycardia with heart rate 50 beats per minute. ME interval 170 ms. QT interval 462 ms with a QT corrected interval 420 ms. There is no acute ST elevation. Appears similar to an EKG from November 2018 Diagnostic Imaging Diagonstic Imaging: Xray Plain Films/CT/US/NM/MRI: chest Comments NAME: ZELDA TILLEY [facility] REC#: [id number] PT STATUS: REG ER : 1945 PHYSICIAN: KELSY VALDOVINOS MD ADMIT DATE: 01/08/19/ER FS Draft Date of Exam:01/08/19 CHEST PA/LAT (2 VIEW) INDICATION: Chest pain and shortness of breath. PA and lateral chest obtained at 01:48 p.m. There is post sternotomy change with cardiomegaly. Aorta is tortuous. The lungs are clear. There is no pneumothorax or pleural fluid. IMPRESSION: Cardiomegaly with post sternotomy change. No acute infiltrate or pleural fluid. Dictated on workstation # [id number] Dict: 01/08/19 1416 Trans: 01/08/19 1419 [id number] Interpreted by: PAUL COMBS MD Electronically signed by: Departure Impression Primary Impression: Acute exacerbation of congestive heart failure Qualified Codes: I50.9 - Heart failure, unspecified Additional Impression: Dyspnea on exertion Disposition: HOME, SELF-CARE Condition: Stable Departure-Patient Inst. Decision time for Depature: 16:26 Referrals: [facility] MD (PCP/Family) Primary Care Physician Jaelyn MAHONEY MD Patient Instructions: Heart Failure, Adult (DC), Low Salt Diet, Shortness of Breath (Dyspnea) (DC) Add. Discharge Instructions: Limit your sodium intake and be very careful with your salt as this can cause your breathing and fluid build up to worsen Increase you Lasix (Furosemide) to 80 mg a day for 3 days and then have your labs rechecked on Saturday with the clinic to see what your electrolytes and kidney function are doing. Call Dr. Mahoney's office in the morning to get an appointment. Let them know that you were seen in the Emergency department and that you were told Dr. Mahoney wanted to see you early next week to establish care with him and follow up for your heart failure. Follow up or be seen sooner if you have worsening symptoms or more problems. All discharge instructions reviewed with patient and/or family. Voiced understanding. Scripts Furosemide (Furosemide) 40 Mg Tablet 80 MG PO DAILY for heart failure for 3 Days, #6 TAB 0 Refills Prov: KELSY VALDOVINOS MD 01/08/19 KELSY VALDOVINOS MD Jan 08, 2019 14:27
[2019-01-08 14:28] LABS: HEMATOCRIT 36 % (35-52); HEMOGLOBIN 11.5 G/DL (11.5-16.0); LYMPHOCYTES % (AUTO) 21 % (12-44); MEAN CORPUSCULAR HEMOGLOBIN 28 PG (25-34); MEAN CORPUSCULAR HGB CONC 32 G/DL (32-36); MEAN CORPUSCULAR VOLUME 89 FL (80-99); MEAN PLATELET VOLUME 10.6 FL (7.4-10.4); MONOCYTES % (AUTO) 11 % (0-12); NEUTROPHILS % (AUTO) 65 % (42-75); PLATELET COUNT 223 10^3/uL (130-400); RED CELL DISTRIBUTION WIDTH 14.8 % (10.0-14.5); WHITE BLOOD COUNT 8.9 10^3/uL (4.3-11.0)
[2019-01-08 14:29] LABS: BASOPHILS # (AUTO) 0.1 10^3/uL (0.0-0.1); BASOPHILS % (AUTO) 1 % (0-10); EOSINOPHILS # (AUTO) 0.2 10^3/uL (0.0-0.3); EOSINOPHILS % (AUTO) 2 % (0-10); LYMPHOCYTES # (AUTO) 1.9 X 10^3 (1.0-4.0); MONOCYTES # (AUTO) 0.9 X 10^3 (0.0-1.0); NEUTROPHILS # (AUTO) 5.8 X 10^3 (1.8-7.8)
[2019-01-08 14:30] LABS: ALBUMIN 4.1 GM/DL (3.2-4.5); BILIRUBIN,TOTAL 0.2 MG/DL (0.1-1.0); CALCIUM 9.4 MG/DL (8.5-10.1); CREATININE SERUM 1.09 MG/DL (0.60-1.30); MAGNESIUM 2.1 MG/DL (1.6-2.4); POTASSIUM 4.8 MMOL/L (3.6-5.0); TOTAL PROTEIN 7.1 GM/DL (6.4-8.2)
[2019-01-08] MEDS ORDERED: FURO40TA4 PO (16:31)
[2019-01-08 16:50] VITALS: BP 163/66
== END 2019-01-08 16:50 | disposition home or self-care (01) ==
LOC: EDUNIT# 13:26 → ER FS 13:27
DX: I11.0 Hypertensive heart disease with heart failure (principal); I50.9 Heart failure, unspecified; I25.2 Old myocardial infarction; I25.10 Atherosclerotic heart disease of native coronary artery without angina pectoris; K21.9 Gastro-esophageal reflux disease without esophagitis; F41.9 Anxiety disorder, unspecified; F32.9 Major depressive disorder, single episode, unspecified; Z90.710 Acquired absence of both cervix and uterus; Z95.1 Presence of aortocoronary bypass graft; Z88.0 Allergy status to penicillin; Z88.2 Allergy status to sulfonamides; Z88.5 Allergy status to narcotic agent; Z98.890 Other specified postprocedural states; Z90.89 Acquired absence of other organs
CPT/HCPCS: 36415; 71046; 80053; 83735; 83880; 84484; 85025; 85610; 85730; 93041

== ENCOUNTER → 2019-01-26 | Outpatient (CLI) | payer MEDICARE ==
[~2019-01-26] MED LIST: FURO40TA4 PO
== END ==
LOC: CARD 10:51
PROVIDERS: ATTEND Internal Medicine Interventional Cardiology
DX: I35.2 Nonrheumatic aortic (valve) stenosis with insufficiency (principal); E78.01 Familial hypercholesterolemia; I73.9 Peripheral vascular disease, unspecified; I25.10 Atherosclerotic heart disease of native coronary artery without angina pectoris; I50.32 Chronic diastolic (congestive) heart failure
CPT/HCPCS: 93306

== ENCOUNTER → 2019-02-05 | Outpatient (CLI) | payer MEDICARE ==
[~2019-02-05] VITALS: Ht 150 cm; Wt 66.0 kg
[~2019-02-05] MED LIST changes: +REGADENOSON 0.4 MG/5 ML SYR (LEXISCAN) IV ONE
[2019-02-05] MEDS: CATHETER FLUSH 10 ML SYR IV PRN ×2 (08:15→09:36)
[2019-02-05 09:19] VITALS: BP 91/41
--- NOTE | 2019-02-05 13:44 | Cardiology Stress Test Report ---
Stress Test Report Type of NM Stress Test: Test Type: LEXISCAN 0.4MG/5ML Date of Procedure/Referring: Date of Procedure: Feb 05, 2019 PCP Jaelyn Mahoney MD Admitting Physician Josephine Greenfield MD Indications: Chest pain, shortness of breath Baseline Heart Rate: 72 Baseline Blood Pressure: Blood Pressure Systolic: 91 Blood Pressure Diastolic: 41 Baseline EKG: Baseline EKG: sinus rhythm Summary & Conclusion: Summary: The patient was brought to the stress lab after informed consent was taken. Stress test was performed according to the Lexiscan protocol. 0.4 mg of IV Lexiscan was given. Low-grade exercise was performed. Baseline EKG showed sinus rhythm at 72 BPM. Initial blood pressure was 128/69 mmHg. Maximum heart rate was 77 bpm and blood pressure 96/47 mmHg. Patient did not have any chest pain, arrhythmias or ST segment changes during the stress test. 10.13 mCi of Myoview were given for rest imaging and 31.6 mCi of Myoview given for stress imaging. Transient ischemic dilatation score 1.03, EF 62 percent. Normal wall motion. Normal myocardial perfusion imaging during rest and stress. Conclusion: Pharmacological stress test was negative for ischemia. Normal LV function with no wall motion abnormalities. Normal myocardial perfusion imaging during rest and stress. Jaelyn MAHONEY MD Feb 05, 2019 13:44
== END ==
LOC: CARD 08:03
PROVIDERS: ATTEND Internal Medicine Interventional Cardiology
DX: I50.32 Chronic diastolic (congestive) heart failure (principal); I25.10 Atherosclerotic heart disease of native coronary artery without angina pectoris; R55 Syncope and collapse; I73.9 Peripheral vascular disease, unspecified; E78.01 Familial hypercholesterolemia
CPT/HCPCS: 78452; 93017